=== PATIENT | female | born 1975 | race Caucasian/White ===

== ENCOUNTER → 2017-02-15 | Outpatient (CLI) | payer OTHER ==
[~2017-02-15] MED LIST: DILANTIN 100 M100 MG PO; NEXIUM20 M1 PO; TOPAMAX50 MG PO
== END ==
LOC: MAMO 08:33
DX: R92.8 Other abnormal and inconclusive findings on diagnostic imaging of breast (principal); N63 Unspecified lump in breast
CPT/HCPCS: 76641-RT; G0206

== ENCOUNTER → 2022-05-12 | Outpatient (CLI) | payer MEDICARE ==
[~2022-05-12] MED LIST changes: +BRIVIACT PO; +IBUPROFEN600 MG PO; +PERCOCET 5/325 T1 EA PO; +PHENYTOIN SODI100 MG PO; +PROVERA10 MG PO; +RANITIDINE HCL150 MG PO
== END ==
LOC: MAMO 14:01
DX: Z12.31 Encounter for screening mammogram for malignant neoplasm of breast (principal)
CPT/HCPCS: 77063; 77067

== ENCOUNTER → 2022-08-18 | Outpatient (CLI) | payer MEDICARE | LOC: US 08-10 14:30 → MAMO 14:04 | DX: R92.8 Other abnormal and inconclusive findings on diagnostic imaging of breast (principal) | CPT/HCPCS: 76641-LT; 77065; G0279 ==